=== PATIENT | male | born 1960 | race African-American/Black ===

== ENCOUNTER 2024-08-17 13:50 | Inpatient (IN) | payer OTHER ==
[2024-08-17 14:51] VITALS: BMI 17.0
[2024-08-17] MEDS ORDERED: guaiFENesin 600 MG TABLET.ER (FP) PO PRN (17:32)
[2024-08-17] MEDS ORDERED: POLYETHYLENE GLYCOL (HEALTHYLAX) 3350 17 GM PACKET PO PRN (17:32)
[2024-08-17] MEDS ORDERED: DOCUSATE SODIUM 100 MG CAPSULE (FP) PO PRN (17:32)
[2024-08-17] MEDS ORDERED: IBUPROFEN 400 MG TABLET (FP) PO PRN (17:32)
[2024-08-17] MEDS ORDERED: NICOTINE POLACRILEX 2 MG LOZENGE BC PRN (17:32)
[2024-08-17] MEDS ORDERED: MAGNESIUM HYDROX 2400MG/30ML ORAL SUSPENSION 30 ML CUP PO PRN (17:32)
[2024-08-17] MEDS ORDERED: P-EPHED 60MG/TRIPROLIDI 2.5MG TABLET PO PRN (17:32)
[2024-08-17] MEDS ORDERED: LOPERAMIDE HCL 2 MG CAPSULE PO PRN (17:32)
[2024-08-17] MEDS ORDERED: BENZONATATE 200 MG CAPSULE PO PRN (17:32)
[2024-08-17] MEDS ORDERED: BISACODYL 5 MG TABLET.DR (FP) PO PRN (17:32)
[2024-08-17] MEDS ORDERED: ACETAMINOPHEN 325 MG TABLET (FP) PO PRN (17:32)
[2024-08-17] MEDS ORDERED: MAG HYDROX/AL HYDROX/SIMETH 30 ML UNIT-DOSE CUP PO PRN (17:32)
[2024-08-17] MEDS ORDERED: NALOXONE (NARCAN) HCL 4 MG/0.1 ML SPRAY NS PRN (17:32)
[2024-08-17] MEDS ORDERED: NICOTINE POLACRILEX 2 MG GUM BUC PRN (17:32)
[2024-08-17] MEDS ORDERED: TUBERCULIN PPD 5 TU/0.1ML VIAL ID ONE ×2 (18:57→21:51)
[2024-08-17] MEDS: TUBERCULIN PPD 5 TU/0.1ML SYRINGE (IN PATIENT USE ONLY) ID ONE (21:47)
[2024-08-17] MEDS: MELATONIN 5 MG TABLETS PO SCH (21:48)
[2024-08-17] MEDS: LIDOCAINE PATCH REMOVAL MC SCH (21:48)
[2024-08-17] MEDS: THIAMINE 100 MG TABLET PO SCH (21:49)
[2024-08-17] MEDS: GABAPENTIN 400 MG CAPSULE PO SCH (21:49)
[2024-08-18] MEDS: IBUPROFEN 600 MG TABLET (FP) PO PRN (06:23)
[2024-08-18] MEDS: BICTEGRAV/EMTRICIT/TENOFOV (BIKTARVY) 50-200-25 MG TABLET PO SCH (10:07)
[2024-08-18] MEDS: amLODIPine BESYLATE 5 MG TABLET (FP) PO SCH (10:07)
[2024-08-18] MEDS: PRENATAL VITAMINS W/ FOLIC ACID TABLET (FP) PO SCH (10:08)
[2024-08-18] MEDS: LIDOCAINE 5% TOPICAL PATCH TP SCH (10:09)
[2024-08-18 10:28] LABS: POTASSIUM 4.8 mmol/L (3.5-5.1)
[2024-08-18 10:31] LABS: CALCIUM 8.9 mg/dL (8.5-10.1)
[2024-08-18 10:32] LABS: ALBUMIN 2.6 g/dl (3.4-5.0); BLOOD UREA NITROGEN 21.8 mg/dL (7-18)
[2024-08-18 10:35] LABS: CREATININE 1.3 mg/dL (0.55-1.3)
[2024-08-18 10:37] LABS: BILIRUBIN,TOTAL 0.3 mg/dL (0.2-1)
[2024-08-18 10:40] LABS: TOT PROT 7.2 g/dl (6.4-8.2)
[2024-08-18 10:44] LABS: HEMATOCRIT 31.9 % (35.4-49); HEMOGLOBIN 10.3 GM/dL (11.7-16.9); MCH 29.3 pg (25.7-33.7); MCHC 32.4 g/dl (32.0-35.9); MEAN CELL VOLUME 90.3 fl (80-96); MEAN PLT VOLUME 9.6 fl (7.5-11.1); PLATELET COUNT 243 10^3/uL (134-434); RBC 3.53 M/mm3 (4.00-5.60); RDW 13.5 % (11.9-15.9); WHITE BLOOD COUNT 3.8 K/mm3 (4.0-10.0)
[2024-08-18] MEDS: ATAZANAVIR SULFATE PO SCH (13:10)
[2024-08-18] MEDS: COBICISTAT PO SCH (13:10)
[2024-08-18] MEDS: ALBUTEROL SO4 HFA INHALER IH PRN (14:24)
[2024-08-20 16:42] LABS: URINE APPEARANCE CLEAR; URINE BILIRUBIN NEGATIVE (NEGATIVE); URINE COLOR YELLOW; URINE GLUCOSE (UA) NEGATIVE (NEGATIVE); URINE KETONE NEGATIVE (NEGATIVE); URINE LEUK ESTERASE NEGATIVE (NEGATIVE); URINE NITRITE NEGATIVE (NEGATIVE); URINE PROTEIN NEGATIVE (NEGATIVE)
[2024-08-20] MEDS: hydrOXYzine PAMOATE 25 MG CAPSULE (FP) PO PRN (17:57)
[2024-08-21] MEDS: SALICYLIC ACID (WART REMOVER) 9 ML LIQUID TP SCH (21:05)
[2024-08-21] MEDS: BACLOFEN 10 MG TABLET (FP) PO SCH (21:47)
[2024-08-22] MEDS: amLODIPine BESYLATE 5 MG TABLET (FP) PO SCH (10:27)
[2024-08-22] MEDS: SALICYLIC ACID (WART REMOVER) 9 ML LIQUID TP SCH (14:31)
[2024-08-22] MEDS: diphenhydrAMINE HCL 25 MG CAPSULE (FP) PO PRN (21:13)
[2024-08-23] MEDS: BUDESONIDE/FORMETEROL FUMARATE 80/4.5 mcg INHALER IH SCH (14:04)
[2024-08-24] MEDS: amLODIPine BESYLATE 2.5 MG TABLET (FP) PO SCH (09:58)
[2024-08-24] MEDS: FLUTICASONE/SALMETEROL (WIXELA) 100 MCG/50 MCG DISKUS IH SCH (23:51)
[2024-08-25] MEDS: BENZOCAINE/MENTHOL (CHLORASEPTIC ) LOZENGE MM PRN (12:56)
[2024-08-27] MEDS ORDERED: amLODIPine BESYLATE 2.5 MG TABLET (FP) PO SCH (12:30)
[2024-08-28] MEDS: amLODIPine BESYLATE 5 MG TABLET (FP) PO SCH (09:09)
[2024-08-28] MEDS: propRANOLol HCL 10 MG TABLET PO PRN (09:17)
[2024-08-31] MEDS: NALOXONE (NYS OPIOID OVERDOSE PROGRAM) 4 MG/0.1 ML SPRAY NS SCH (06:51)
[2024-08-31 07:21] VITALS: BP 124/81; PULSE 77; RESP 17; TEMP 97.6
== END 2024-08-31 07:20 | disposition home or self-care (01) | DRG 895 ==
LOC: YASAS 13:50 → Y3E 18:42
PROVIDERS: ADMIT Psychiatry & Neurology Pain Medicine; ATTEND Psychiatry & Neurology Pain Medicine
PROC: HZ42ZZZ Group Counseling for Substance Abuse Treatment, Cognitive-Behavioral (ICD-10-PCS; principal; 2024-08-17)
DX: F10.20 Alcohol dependence, uncomplicated (principal); F14.20 Cocaine dependence, uncomplicated; F19.280 Other psychoactive substance dependence with psychoactive substance-induced anxiety disorder; Z68.1 Body mass index [BMI] 19.9 or less, adult; F17.210 Nicotine dependence, cigarettes, uncomplicated; Z21 Asymptomatic human immunodeficiency virus [HIV] infection status; G62.9 Polyneuropathy, unspecified; I10 Essential (primary) hypertension; L30.9 Dermatitis, unspecified; L84 Corns and callosities; M54.50 Low back pain, unspecified; G89.29 Other chronic pain; R63.4 Abnormal weight loss
CPT/HCPCS: 36415; 80053; 80305; 80307; 81003; 85027; 86593; 86780; 86803; 87811; 93005; 93010; J0475